=== PATIENT | male | born 2000 | race Caucasian/White ===

== ENCOUNTER 2019-04-26 09:24 | Emergency (ER) | payer OTHER ==
[2019-04-26 09:41] VITALS: BP 132/80; PULSE 65; TEMP 99.1; BMI 25.0
--- NOTE | 2019-04-26 09:53 | PDOC ---
History of Present Illness - General Chief Complaint: Abscess Boil Stated Complaint: BOIL Time Seen by Provider: 04/26/19 09:42 History Source: Patient, Parent(s) (dad) Exam Limitations: No Limitations - History of Present Illness Timing/Duration: reports: just prior to arrival Associated Symptoms: reports: rash. denies: fever (left elbow swelling X 4 days ) Past History - Travel Traveled outside of the country in the last 30 days: No Close contact w/someone who was outside of country & ill: No - Past Medical History Allergies/Adverse Reactions: Allergies Allergy/AdvReac Type Severity Reaction Status Date / Time PCN Allergy Rash Uncoded 04/26/19 09:39 Home Medications: Ambulatory Orders No Home Medications 0 dose .ROUTE UTDICT 03/04/14 Doxycycline Monohydrate [Monodox] 100 mg PO Q12H #14 capsule 04/26/19 Mupirocin Ointment [Bactroban 2% Ointment -] 1 applic TP BID 7 Days #30 gr 04/26 COPD: No - Suicide/Smoking/Psychosocial Hx Smoking History: Never smoked Hx Alcohol Use: No Substance Use Type: None Review of Systems - Review of Systems Able to Perform ROS?: Yes Is the patient limited [place] proficient: No Constitutional: No: Chills, Fever Musculoskeletal: No: Gout, Joint Pain, Joint Swelling, Muscle Pain, Muscle Weakness, Joint Stiffness Integumentary: Yes: Erythema, Lumps, Rash *Physical Exam - Vital Signs Last Vital Signs Temp Pulse Resp BP Pulse Ox 99.1 F 65 18 132/80 04/26/19 09:39 04/26/19 09:39 04/26/19 09:39 04/26/19 09:39 - Physical Exam General Appearance: Yes: Nourished Respiratory/Chest: positive: Lungs Clear, Normal Breath Sounds Cardiovascular: positive: Regular Rhythm, Regular Rate, S1, S2 Extremity: positive: Normal Capillary Refill, Normal Inspection, Normal Range of Motion, Erythema (right elbow indurated area dime size, FROM) Neurologic: positive: business proposal rep II-XII NML intact, Fully Oriented, Alert, Normal Mood/ Affect, Normal Response, Motor Strength 5/5 Medical Decision Making - Medical Decision Making 04/26/19 09:56 18y/o M bib dad c/o painful pimple in left elbow X 4 days denies f/c, UTD with tetatus He is R dominant no pain on ROM, he has full range exam consistent with a indurated area dime sized, + erythema but no fluctance or warmth warm compresses abx 04/26/19 13:27 *DC/Admit/Observation/Transfer Diagnosis at time of Disposition: Abscess - Discharge Dispostion Disposition: HOME Condition at time of disposition: Stable Decision to Admit order: No - Prescriptions Prescriptions: Doxycycline Monohydrate [Monodox] 100 mg PO Q12H #14 capsule Mupirocin Ointment [Bactroban 2% Ointment -] 1 applic TP BID 7 Days #30 gr - Referrals - Patient Instructions Printed Discharge Instructions: DI for Skin Abscess Additional Instructions: warm compress to the area at least 3 times a day take antibiotics as prescribed return to the ER if worsening redness, pain or swelling occurs - Post Discharge Activity
== END 2019-04-26 10:00 | disposition home or self-care (01) ==
LOC: JERFT 09:24
DX: L02.414 Cutaneous abscess of left upper limb (principal)
CPT/HCPCS: 99281-25